=== PATIENT | female | born 1960 | race Asian ===

== ENCOUNTER 2020-07-31 22:55 | Emergency (ER) | payer OTHER ==
[~2020-07-31] VITALS: Ht 160 cm; Wt 52.3 kg
[2020-07-31 23:00] VITALS: BP 150/86
== END 2020-08-01 00:50 | disposition left against medical advice (07) ==
LOC: ED 22:55
DX: K56.699 Other intestinal obstruction unspecified as to partial versus complete obstruction (principal); R10.13 Epigastric pain; I10 Essential (primary) hypertension; E11.9 Type 2 diabetes mellitus without complications
CPT/HCPCS: J2405